=== PATIENT | female | born 1970 | race Caucasian/White ===

== ENCOUNTER 2016-10-05 08:36 | Emergency (ER) | payer OTHER ==
[~2016-10-05] VITALS: Ht 165.1 cm; Wt 85.3 kg
[~2016-10-05 08:36] MED LIST: ADVAIR 500/501 DISK IH; HYDROCODON-ACE1 EAC7 PO; PRINIVIL10 MG PO; SINGULAIR10 MG PO
[2016-10-05 08:59] VITALS: BP 129/65
[2016-10-05] MEDS ORDERED: TORADOL10 MG PO (10:27)
[2016-10-05] MEDS ORDERED: PREDNISONE20 MG PO (10:27)
[2016-10-05] MEDS ORDERED: PERCOCET 5/31 TABLET PO (10:27)
[2016-10-05] MEDS ORDERED: FLEXERIL10 MG PO (10:27)
== END 2016-10-05 10:42 | disposition home or self-care (01) ==
LOC: EME 08:36
DX: M54.42 Lumbago with sciatica, left side (principal); Z98.1 Arthrodesis status
CPT/HCPCS: 72100; J1885; J2270; J7512

== ENCOUNTER 2017-11-30 21:40 | Emergency (ER) | payer OTHER ==
[~2017-11-30] VITALS: Ht 165.1 cm; Wt 93.3 kg
[~2017-11-30 21:40] MED LIST changes: +FLEXERIL10 MG PO; +PERCOCET 5/31 TABLET PO; +PREDNISONE20 MG PO; +TORADOL10 MG PO
[2017-11-30 22:31] LABS: HEMATOCRIT 37.1 % (36.0-46.0); HEMOGLOBIN 12.5 G/DL (11.9-15.5); MCH 28.7 PG (29.0-34.0); MCHC 33.7 G/DL (30.0-36.0); MCV 85.3 FL (83-99); PLATELET COUNT 413 K/uL (156-360); RBC DIS.WIDTH-CV 13.8 % (11.8-14.6); RED BLOOD COUNT 4.35 M/uL (3.80-5.20); WHITE BLOOD COUNT 11.8 K/uL (4.1-10.2)
[2017-11-30 22:43] LABS: ALBUMIN 4.2 g/dL (3.2-4.8); CHLORIDE 105 mEq/L (99-109); POTASSIUM 3.6 mEq/L (3.7-5.4); SODIUM 142 mEq/L (136-147)
[2017-11-30 22:45] LABS: GLUCOSE 116 mg/dL (70-99); TOTAL PROTEIN 7.1 g/dL (6.4-8.3)
[2017-11-30 22:47] LABS: TOTAL BILIRUBIN 0.1 mg/dL (0.0-1.0)
[2017-11-30 22:49] LABS: ALKALINE PHOSPHATASE 114 IU/L (3-129); CREATININE 0.6 mg/dL (0.6-1.3); GFR ESTIMATE (CALCULATED) > 59 mL/min/
[2017-11-30 22:50] LABS: UREA NITROGEN (BUN) 21 mg/dL (9-23)
[2017-11-30 22:51] LABS: AST (GOT) 78 IU/L (2-34)
[2017-11-30 22:52] LABS: ALT (GPT) 62 IU/L (3-49); LIPASE 26 U/L (1.0-51.0)
[2017-11-30 22:59] LABS: QUANTITATIVE HCG 27.1 MIU/ML
[2017-11-30 23:15] LABS: APPEARANCE CLEAR ((CLEAR)); BILIRUBIN NEGATIVE; BLOOD NEGATIVE; COLOR YELLOW ((YELLOW)); GLUCOSE (STRIP) NEGATIVE; KETONES NEGATIVE; LEUKOCYTES NEGATIVE; NITRITE NEGATIVE; PROTEIN (STRIP) 30; SPECIFIC GRAVITY 1.025 (1.000-1.030); UCUL ADDED? NO
[2017-12-01 01:24] LABS: TROP-I INTERPRETATION NEGATIVE; TROPONIN-I < 0.01 ng/mL (0.0-0.30)
[2017-12-01 04:23] LABS: TROP-I INTERPRETATION NEGATIVE; TROPONIN-I < 0.01 ng/mL (0.0-0.30)
[2017-12-01 04:46] VITALS: BP 157/99
== END 2017-12-01 04:46 | disposition home or self-care (01) ==
LOC: EME 21:40
PROVIDERS: Emergency Medicine
DX: R09.1 Pleurisy (principal); Z79.51 Long term (current) use of inhaled steroids; Z98.51 Tubal ligation status; Z98.1 Arthrodesis status; Z96.651 Presence of right artificial knee joint; Z88.2 Allergy status to sulfonamides
CPT/HCPCS: 71046; 71275; 80053; 81003; 81025; 83690; 84484; 84702; 85027; 85379; 93005; 99281; 99285; J1885